=== PATIENT | male | born 1975 | race Caucasian/White ===

== ENCOUNTER → 2021-03-15 09:05 | Outpatient (CLI) | payer BC, SELFPAY ==
[2021-03-16 07:19] LABS: SARS-CoV-2 RNA PCR Negative
== END ==
PROVIDERS: PCP Student in an Organized Health Care Education/Training Program; Visit Provider Student in an Organized Health Care Education/Training Program
DX: R68.89 Other general symptoms and signs (principal); Z20.822 Contact with and (suspected) exposure to COVID-19
CPT/HCPCS: C9803; U0003; U0005

== ENCOUNTER 2021-05-03 01:17 | Day surgery (SDC) | payer BC, SELFPAY ==
[2021-04-19 11:31] VITALS: BMI 29.8
[2021-05-03 06:38] VITALS: BP 144/86; PULSE 86; RESP 20; TEMP 36.7; O2SAT 98
[2021-05-03] MEDS: LACTATED RINGERS 1,000 ML 150 ML IV CONT (06:40)
--- NOTE | 2021-05-03 07:17 | P.PNAN_ITS ---
Anes - Initial Pre Proc Eval Procedure: Operation Date: 05/03/21 08:00 Proposed Procedures p Esophagogastroduodenoscopy & Screening Colonoscopy - Nish Liriano MD Date/Time: 05/03/21 07:17 Surgeon: Nish Deluca MD Pre Op Diagnosis: neoplasm screening, GERD Patient Data Age: 45 Gender: M Height: 1.85 m Weight: 101.3 kg Last Vital Signs Temp 36.7 C 05/03/21 06:38 Pulse 86 05/03/21 06:38 Resp 20 05/03/21 06:38 BP 144/86 H 05/03/21 06:38 Pulse Ox 98 05/03/21 06:38 Allergies Allergy/AdvReac Type Severity Reaction Status Date / Time No Known Allergies Allergy Verified 05/03/21 06:37 Home Medications Medication Instructions Recorded Confirmed Type omeprazole 20 mg capsule,delayed 20 mg PO DAILY 02/28/21 05/03/21 History release Patient hx anesthesia problems: none Family hx anesthesia problems: none Results Review: All pre-operative results and documents have been reviewed as part of the pre-operative evaluation. [facility] Past Medical History Medical History (Updated 05/03/21 @ 07:17 by Joe Salas MD) Encounter for colonoscopy in patient with family history of colon polyps Family hx of colon cancer Overweight Surgical History Surgical History (Updated 05/03/21 @ 07:17 by Joe Salas MD) H/O elbow surgery Family History Family History Mother Diabetes mellitus Father Heart disease Social History Social History Smoking status: Never smoker Alcohol intake: current Alcohol use details: socially, weekly Substance use: never Substance use type: does not use Living arrangements: with family Spiritual care concerns: No Anes - Eval Final PreProcedure Day of Procedure 05/03/21 07:17 Patient weight: overweight Heart: regular rate and rhythm Lungs: clear to auscultation Airway: Mallampati scale class II Neurological: alert and oriented Last oral intake: >/= 8 hours ASA classification: II Emergent: no Anesthetic plan: proceed Anesthesia type and monitoring: general GIVS and standard monitoring Results Review: All pre-operative results and documents have been reviewed as part of the pre-operative evaluation. Informed Consent: The patient's anesthetic plan and its attendant risks and benefits were discussed with the patient/family/POA. Questions were solicited and answers provided to the satisfaction of the patient/family/POA.
--- NOTE | 2021-05-03 07:55 | PM.HPGS ---
History of Present Illness History of Present Illness Consent: Risks, benefits, and alternatives have been discussed and questions answered. Patient agrees to proceed with procedure. Chief complaint: neoplasm screening, GERD Narrative: Natalio Denise is a 45 year old male with chronic GERD on ppi, never had scopes Review of Systems Constitutional: Constitutional: Denies headache(s) and Denies weakness Eyes: Eyes: Denies blurry vision ENT: Reports Normal hearing present, Denies headache(s) and Denies neck pain Cardiovascular: Cardiovascular: Denies chest pain and Denies dyspnea Respiratory: Respiratory: Denies dyspnea Gastrointestinal: Gastrointestinal: Reports no additional gastrointestinal complaints Genitourinary: Genitourinary: Denies dysuria Musculoskeletal: Musculoskeletal: Denies neck pain Integumentary/Breasts: Skin/Breast: Denies dry skin Neurologic: Reports Normal hearing present, Denies headache(s) and Denies weakness Psychiatric: Psychiatric: Denies anxiety Endocrine: Endocrine: Denies change in body appearance Hematologic/Lymphatic: Hematologic/Lymphatic: Denies easy bleeding Allergic/Immunologic: Allergic/Immunologic: Denies urticaria PMF Past Medical History Medical History (Updated 05/03/21 @ 07:56 by Nish Deluca MD) Encounter for colonoscopy in patient with family history of colon polyps Family hx of colon cancer GERD (gastroesophageal reflux disease) Overweight Surgical History Surgical History (Updated 05/03/21 @ 07:17 by Joe Salas MD) H/O elbow surgery Family History Family History Mother Diabetes mellitus Father Heart disease Social History Social History Smoking status: Never smoker Alcohol intake: current Alcohol use details: socially, weekly Substance use: never Substance use type: does not use Living arrangements: with family Spiritual care concerns: No Meds Home Medications and Allergies Home Medications Medication Instructions Recorded Confirmed Type omeprazole 20 mg capsule,delayed 20 mg PO DAILY 02/28/21 05/03/21 History release Allergies Allergy/AdvReac Type Severity Reaction Status Date / Time No Known Allergies Allergy Verified 05/03/21 06:37 Vital Signs Vital Signs - 24 hr 05/03/21 06:38 Temperature 98.1 F Pulse Rate 86 Respiratory Rate 20 Blood Pressure 144/86 H Pulse Oximetry 98 Exam Const: General: comfortable and no acute distress HENMT: General nose exam: Normal nares present Eyes: General: appearance normal, both eyes and all related structures Neck: Neck: no JVD Resp: Auscultation: clear to auscultation bilaterally Cardio: Rate: regular rate Rhythm: regular rhythm GI: Inspection: non-distended GI Palp: Yes Soft to palpation Skin: General skin exam: normal color Neuro: General: gait normal Speech: normal speech Extrem: General: normal to inspection Psych: Mental Status: mental status grossly normal Assessment and Plan Assessment and plan (1) Encounter for colonoscopy in patient with family history of colon polyps: Code(s): Z12.11 - Encounter for screening for malignant neoplasm of colon; Z83.71 - Family history of colonic polyps Status: Acute Assessment and Plan: colonoscopy (2) GERD (gastroesophageal reflux disease): Code(s): K21.9 - Gastro-esophageal reflux disease without esophagitis Status: Acute Assessment and Plan: egd
--- NOTE | 2021-05-03 08:26 | SUR.OPER ---
EGD START 806, END 810 COLONOSCOPY START 815, END 824
[2021-05-03 08:30] VITALS: BP 126/64; PULSE 87; RESP 22; O2SAT 99
[2021-05-03 08:40] VITALS: BP 110/69; PULSE 78; RESP 22; O2SAT 100
[2021-05-03 08:50] VITALS: BP 121/87; PULSE 71; RESP 22; O2SAT 100
== END 2021-05-03 09:00 | disposition home or self-care (01) ==
PROVIDERS: PCP Student in an Organized Health Care Education/Training Program; Visit Provider Internal Medicine Gastroenterology
PROC: 0DJ08ZZ Inspection of Upper Intestinal Tract, Via Natural or Artificial Opening Endoscopic (ICD-10-PCS; CPT 43235; principal; 2021-05-03 08:00)
DX: Z12.11 Encounter for screening for malignant neoplasm of colon (principal); K57.30 Diverticulosis of large intestine without perforation or abscess without bleeding; K64.8 Other hemorrhoids; K21.00 Gastro-esophageal reflux disease with esophagitis, without bleeding; Z83.71 Family history of colonic polyps
CPT/HCPCS: 45378; 43239; 88305; J2704; J7120

== ENCOUNTER 2024-12-14 08:08 | Outpatient (CLI) | payer BC, SELFPAY ==
--- NOTE | ~2024-12-14 | CT_ITS ---
CT of the Abdomen and Pelvis: Indication: Ventral hernia Technique: 2.5 mm axial scans were obtained through the abdomen and pelvis following intravenous adm inistration of 100 cc of Omnipaque 350. Dose reduction technique was used on this scan by utilizing a utomated exposure control and iterative reconstruction technique. The dose-length product (DLP) was 1 001.03 mGy-cm. Findings: Scans through the lung bases are unremarkable. The liver, spleen, pancreas, gallbladder, adrenals and kidneys are within normal limits. No evidence of aortic aneurysm. No lymphadenopathy. No bowel obstruction or bowel wall thickening. There is no evidence to suggest acute appendicitis. Images through the pelvis were performed. Urinary bladder unremarkable. No pelvic mass seen. No ascit es. Impression: No significant abnormalities seen. No hernia identified. Reviewed, dictated and finalized at [facility]. Impression: No significant abnormalities seen. No hernia identified.
== END 2024-12-14 08:09 | disposition home or self-care (01) ==
LOC: MICIMG 08:09
PROVIDERS: PCP Student in an Organized Health Care Education/Training Program; Visit Provider Student in an Organized Health Care Education/Training Program
DX: K43.9 Ventral hernia without obstruction or gangrene (principal)
CPT/HCPCS: 74177; Q9967